=== PATIENT | male | born 1985 | race Caucasian/White ===

== ENCOUNTER 2024-01-19 18:29 | Emergency (ER) | payer OTHER ==
[~2024-01-19] VITALS: Ht 180.3 cm; Wt 120.2 kg
[2024-01-19] MEDS ORDERED: CEPHALEXIN500 M1 PO (19:19)
[2024-01-19] MEDS ORDERED: VIBRAMYCIN100 MG PO (19:19)
[2024-01-19] MEDS ORDERED: CEPHALEXIN 500 MG CAP PO ONE (19:25)
[2024-01-19] MEDS ORDERED: Doxycycline Hyclate 100 MG CAP PO ONE (19:25)
== END 2024-01-19 19:33 | disposition home or self-care (01) ==
LOC: ED 18:29
DX: L03.116 Cellulitis of left lower limb (principal); L02.416 Cutaneous abscess of left lower limb; Z53.29 Procedure and treatment not carried out because of patient's decision for other reasons

== ENCOUNTER 2024-08-29 17:42 | Emergency (ER) | payer OTHER ==
[~2024-08-29] VITALS: Ht 180.3 cm; Wt 127.0 kg
[~2024-08-29 17:42] MED LIST: CEPHALEXIN500 M1 PO; VIBRAMYCIN100 MG PO
[2024-08-29] MEDS ORDERED: methylPREDNISolone acetate 40 MG/ML VIAL IM ONE (18:35)
[2024-08-29] MEDS ORDERED: Ketorolac Tromethamine 30 MG/ML VIAL IM ONE (18:35)
[2024-08-29] MEDS ORDERED: MEDROL DOSEPAK4 MG PO (20:35)
[2024-08-29] MEDS ORDERED: NAPROSYN500 MG PO (20:35)
[2024-08-29] MEDS ORDERED: tiZANidine Hydrochloride 4 MG TAB PO ONE (20:35)
[2024-08-29] MEDS ORDERED: ZANAFLEX4 MG PO (20:35)
== END 2024-08-29 21:01 | disposition home or self-care (01) ==
LOC: ED 17:42
DX: S39.012A Strain of muscle, fascia and tendon of lower back, initial encounter (principal); M54.6 Pain in thoracic spine; Z79.899 Other long term (current) drug therapy; X58.XXXA Exposure to other specified factors, initial encounter; Y93.89 Activity, other specified; Y92.89 Other specified places as the place of occurrence of the external cause; Y99.8 Other external cause status